=== PATIENT | female | born 1945 | race Caucasian/White ===

== ENCOUNTER 2017-08-25 12:58 | Observation (INO) | payer OTHER ==
--- NOTE | 2017-08-25 13:24 | EDPHY ---
H & P Time Seen by Provider: 08/25/17 13:12 HPI/ROS: CHIEF COMPLAINT: GI bleed, black stool HISTORY OF PRESENT ILLNESS: [place] and has not had GI bleed ever before. She has been taking 6-8 ibuprofen a day for the past week for a right iliotibial band pain in her right hip. She woke up at 8:00 a.m. Today and had black runny watery stool and had a total of 3 black tarry bowel movements this morning. She was seen at urgent care just prior to coming here and had a heart rate of 118 the and melena on occult blood testing. Here her black stool is moderate. Associated with a little abdominal discomfort but no pain. No vomiting or right red blood per rectum. Not better worse with anything. REVIEW OF SYSTEMS: Eye: no change in vision ENT: no sore throat Cardiac: no chest pain or syncope, not dizzy or lightheaded Pulmonary: no cough or SOB Abdomen: HPI Musculoskeletal: HPI Skin: no rash Neuro: no headache Constitutional: no fever : no urinary symptoms A comprehensive 10 point review of systems is otherwise negative aside from elements mentioned in the history of present illness. PAST MEDICAL HISTORY: Includes diabetes, hypertension, hypercholesterolemia, irritable bowel Social history: Visiting from [facility] General Appearance: Alert and conversant, cooperative. Eyes: No scleral icterus. ENT, Mouth: Normal mucous membranes. Respiratory: Normal respiratory effort, breath sounds equal, lungs are clear to auscultation. Cardiovascular: Regular rate and rhythm. Gastrointestinal: Abdomen is soft and non tender. Neurological: Alert, ambulatory into the room. Skin: Warm and dry, no rashes. Musculoskeletal: No peripheral edema. Psychiatric: Not agitated. Emergency Department course/MDM: Patient's initial heart rate 109 with blood pressure 135/106. Likely acute upper GI bleed, probably from nonsteroidal use. Plan for IV ppi, IV fluid resuscitation, admission to hospitalist with Gastroenterology consultation for endoscopy. 1348: istat hematocrit 41. 1352: Alicia for Caleb. Smoking Status: Never smoked Constitutional: Initial Vital Signs Temperature (C) 36.6 C 08/25/17 13:04 Heart Rate 109 H 08/25/17 13:04 Respiratory Rate 18 08/25/17 13:04 Blood Pressure 135/106 H 08/25/17 13:04 O2 Sat (%) 95 08/25/17 13:04 O2 Delivery Mode Room Air Allergies/Adverse Reactions: aspirin Allergy (Verified 08/25/17 13:10) erythromycin base Allergy (Verified 08/25/17 13:10) Penicillins Allergy (Verified 08/25/17 13:10) Sulfa (Sulfonamide Antibiotics) Allergy (Verified 08/25/17 13:10) Home Medications: Medication Instructions Recorded Fosamax 35 MG 08/25/17 Lisinopril 08/25/17 Metformin HCl 08/25/17 traZODone 08/25/17 Medical Decision Making - Diagnostics EKG Interpretation: 12-lead EKG interpreted by me; official reading is in trace master. My interpretation is sinus rhythm with left axis and PVC. Differential Diagnosis: Differential includes but not limited to lower GI bleed, gastroenteritis, infectious diarrhea, colitis. Consult/Admit Bed Type: [facility] 132 - Data Points Laboratory Results: Laboratory Results 08/25/17 13:20 08/25/17 13:20 08/25/17 08/25/17 08/25/17 13:36 13:29 13:20 WBC RBC Hgb POC Hgb 13.9 gm/dL gm/dL (12.6-16.3) Hct POC Hct 41 % % (38-47) MCV MCH MCHC RDW Plt Count MPV Neut % (Auto) Lymph % (Auto) [place] % (Auto) Eos % (Auto) Baso % (Auto) Nucleat RBC Rel Count Absolute Neuts (auto) Absolute Lymphs (auto) Absolute Monos (auto) Absolute Eos (auto) Absolute Basos (auto) Absolute Nucleated RBC Immature Gran % Immature Gran # PT INR APTT POC Sodium 144 mEq/L mEq/L (135-145) Sodium 144 mEq/L mEq/L (135-145) POC Potassium 3.8 mEq/L mEq/L (3.3-5.0) Potassium 4.3 mEq/L mEq/L (3.5-5.2) POC Chloride 110 mEq/L mEq/L (97-110) Chloride 110 mEq/L mEq/L (97-110) Carbon Dioxide 21 mEq/l L mEq/l (22-31) Anion Gap 13 mEq/L mEq/L (8-16) POC BUN 18 mg/dL mg/dL (7-23) BUN 18 mg/dL mg/dL (7-23) Creatinine 0.6 mg/dL mg/dL (0.6-1.0) POC Creatinine 0.5 mg/dL L mg/dL (0.6-1.0) Estimated GFR > 60 Glucose 120 mg/dL H mg/dL (70-100) POC Glucose 132 mg/dL H mg/dL (70-100) Calcium 10.1 mg/dL mg/dL (8.5-10.4) Patient ABO/Rh Pending Antibody Screen Pending 08/25/17 08/25/17 13:20 13:20 WBC 9.50 10^3/uL 10^3/uL (3.80-9.50) RBC 4.42 10^6/uL 10^6/uL (4.18-5.33) Hgb 12.9 g/dL g/dL (12.6-16.3) POC Hgb Hct 39.4 % % (38.0-47.0) POC Hct MCV 89.1 fL fL (81.5-99.8) MCH 29.2 pg pg (27.9-34.1) MCHC 32.7 g/dL g/dL (32.4-36.7) RDW 13.7 % % (11.5-15.2) Plt Count 298 10^3/uL 10^3/uL (150-400) MPV 10.9 fL fL (8.7-11.7) Neut % (Auto) 61.8 % % (39.3-74.2) Lymph % (Auto) 25.1 % % (15.0-45.0) [place] % (Auto) 10.7 % % (4.5-13.0) Eos % (Auto) 1.3 % % (0.6-7.6) Baso % (Auto) 0.7 % % (0.3-1.7) Nucleat RBC Rel Count 0.0 % % (0.0-0.2) Absolute Neuts (auto) 5.87 10^3/uL 10^3/uL (1.70-6.50) Absolute Lymphs (auto) 2.38 10^3/uL 10^3/uL (1.00-3.00) Absolute Monos (auto) 1.02 10^3/uL H 10^3/uL (0.30-0.80) Absolute Eos (auto) 0.12 10^3/uL 10^3/uL (0.03-0.40) Absolute Basos (auto) 0.07 10^3/uL 10^3/uL (0.02-0.10) Absolute Nucleated RBC 0.00 10^3/uL 10^3/uL (0-0.01) Immature Gran % 0.4 % % (0.0-1.1) Immature Gran # 0.04 10^3/uL 10^3/uL (0.00-0.10) PT 12.5 SEC SEC (12.0-15.0) INR 0.91 (0.83-1.16) APTT 29.0 SEC SEC (23.0-38.0) POC Sodium Sodium POC Potassium Potassium POC Chloride Chloride Carbon Dioxide Anion Gap POC BUN BUN Creatinine POC Creatinine Estimated GFR Glucose POC Glucose Calcium Patient ABO/Rh Antibody Screen Medications Given: Discontinued Medications Sodium Chloride (Ns) 1,000 mls @ 0 mls/hr IV EDNOW ONE; Wide Open PRN Reason: Protocol Stop: 08/25/17 13:26 Last Admin: 08/25/17 13:32 Dose: 1,000 mls Pantoprazole Sodium (Protonix) 80 mg IVP EDNOW ONE Stop: 08/25/17 13:27 Last Admin: 08/25/17 13:32 Dose: 80 mg Point of Care Test Results: 08/25/17 13:36 POC Sodium 144 POC Potassium 3.8 POC Chloride 110 POC BUN 18 POC Creatinine 0.5 L POC Glucose 132 H Departure - Departure Disposition: [facility] Inpatient Acute Clinical Impression: Upper GI bleed Condition: Good Referrals: NONE *PRIMARY CARE P,. [Primary Care Provider] - As per Instructions
[2017-08-25] MEDS ORDERED: NS 1,000 ML IV ONE (13:25)
[2017-08-25] MEDS ORDERED: PANTOPRAZOLE SODIUM 40 MG VIAL IVP ONE (13:26)
[2017-08-25 13:40] LABS: PLATELET COUNT 298 10^3/uL (150-400)
--- NOTE | 2017-08-25 13:47 | CPEKG ---
Heart Rate: 95 RR Interval: 632 P-R Interval: 180 QRSD Interval: 92 QT Interval: 364 QTC Interval: 458 P [place]: 23 QRS [place]: -20 T Wave [place]: 19 EKG Severity - BORDERLINE ECG - EKG Impression: SINUS RHYTHM EKG Impression: BORDERLINE LEFT AXIS DEVIATION EKG Impression: BORDERLINE T WAVE ABNORMALITIES Electronically Signed By: Karl Sheth 25-Aug-2017 14:06:04
[2017-08-25 13:49] LABS: INR 0.91 (0.83-1.16); PROTIME(PATIENT) 12.5 SEC (12.0-15.0)
[2017-08-25] MEDS ORDERED: ONDANSETRON 4 MG/2 ML VIAL IVP PRN ×2 (14:38→17:25)
[2017-08-25] MEDS ORDERED: ONDANSETRON DISINTEGRATING 4 MG TAB PO PRN (14:38)
[2017-08-25] MEDS ORDERED: LORazepam 2 MG/ML INJ IVP PRN (15:20)
[2017-08-25] MEDS ORDERED: diphenhydrAMINE 25 MG CAP PO PRN (15:21)
[2017-08-25] MEDS ORDERED: traZODone 50 MG TAB PO PRN (15:21)
[2017-08-25] MEDS ORDERED: NS 1,000 ML IV SCH (15:30)
--- NOTE | 2017-08-25 16:13 | PDANEPAE ---
ANE History of Present Illness 72 yo female with GI bleed in setting of recent daily NSAID use. ANE Past Medical History - Cardiovascular History Hx Hypertension: Yes Hx Arrhythmias: No Hx Coronary Artery / Peripheral Vascular Disease: No Hx Palpitations: No Cardiovascular History Comment: hypercholesterolemia - Pulmonary History Hx COPD: No Hx Asthma/Reactive Airway Disease: No Hx Oxygen in Use at Home: No - Endocrine History Hx Diabetes: Yes Hypothyroid: No Obesity: no - Neurological & Psychiatric Hx Hx Neurological and Psychiatric Disorders: Yes Neurological / Psychiatric History Comment: anxiety - takes Valium and trazadone - GI History Hx Gastrointestinal Disorders: Yes Gastrointestinal History Comment: IBS - Other Health History Other Health History: osteoporosis ANE Review of Systems Review of Systems: - Systems Respiratory: Reports: cough (dry, 2 nights ago, thinks it was due to low humidity in [place] (visiting from [place])) Gastrointestinal: Reports: black stools Muscolosketal: Reports: joint pain (hip pain - taking ibuprofen recently to help ) ANE Patient History - Allergies Allergies/Adverse Reactions: Sulfa (Sulfonamide Antibiotics) Allergy (Severe, Verified 08/25/17 14:21) Swelling/neck,face,throat aspirin Allergy (Intermediate, Verified 08/25/17 14:21) Other-Enter Comments erythromycin base Allergy (Intermediate, Verified 08/25/17 14:21) Vomiting Penicillins Allergy (Intermediate, Verified 08/25/17 14:21) Other-Enter Comments - Home Medications Home Medications: Alendronate Sodium [Fosamax 70 MG (*)] 70 mg PO WE@0700 08/25/17 [Last Taken ] Atorvastatin Calcium [Lipitor 40 mg (*)] 40 mg PO HS 08/25/17 [Last Taken ] Calcium Carbonate [Oyster Shell Calcium 500 mg (*)] 1,000 mg PO DAILY 08/25/17 [ Last Taken 08/24/17] Cholecalciferol Vit D3 [Vitamin D3 2000 units tab (OTC)] 2,000 units PO DAILY [Last Taken 08/24/17] Diazepam [Valium 5 MG (*)] 2.5 mg PO DAILY PRN 08/25/17 [Last Taken 08/22/17] Ibuprofen [Motrin (*)] 400 mg PO Q6 PRN 08/25/17 [Last Taken 08/24/17 22:00] Lisinopril [Zestril 5 mg (*)] 5 mg PO DAILY 08/25/17 [Last Taken 08/25/17] Loperamide HCl [Imodium 2 mg (*)] 2 mg PO PRN PRN 08/25/17 [Last Taken Unknown] diphenhydrAMINE [Benadryl 25 MG (*)] 25 mg PO DAILY PRN 08/25/17 [Last Taken Unknown] metFORMIN HCL [Metformin HCl] 500 mg PO HS 08/25/17 [Last Taken 08/24/17] traZODone [traZODONE 50MG (*)] 50 mg PO HS PRN 08/25/17 [Last Taken Unknown] - NPO status NPO Status: no food or drink >8 hours - Anes Hx Anes Hx: no prior problems - Smoking Hx Smoking Status: Never smoked - Family Anes Hx Family Anes Hx: neg - N/A ANE Labs/Vital Signs - Labs Result Diagrams: 08/25/17 13:20 08/25/17 13:20 - Vital Signs Blood Pressure: 142/86 Heart Rate: 90 Respiratory Rate: 16 O2 Sat (%): 97 Height: 167.64 cm Weight: 80.5 kg ANE Physical Exam - Airway Neck exam: FROM Mallampati Score: Class 2 Mouth exam: normal dental/mouth exam - Cardiovascular Cardiovascular: regular rate and rhythym - ASA Status ASA Status: II, E ANE Anesthesia Plan Anesthesia Plan: GA with mask Total IV Anesthesia: Yes
--- NOTE | 2017-08-25 16:14 | GHP ---
[f rep st] HISTORY AND PHYSICAL DATE OF ADMISSION: 08/25/2017 PRIMARY CARE PHYSICIAN: Janna Lobato at [facility] in [place]. CHIEF COMPLAINT: Dark tarry stools, with GI bleeding. HISTORY OF PRESENT ILLNESS: The patient is a 72-year-old female with a history of hypertension, lisette nsulin-dependent diabetes mellitus, who has been taking multiple doses of ibuprofen for the past toni ral months. Since a few months ago, she has been having pain in her IT band that has been treated wi th PT and NSAID therapy. This morning, she awoke at 8 and proceeded to have watery black stool, foll owed by dark tarry stools with a total of 3 bowel movements. She went to [facility] and t tracy was transferred to [facility] ED, and now is being admitted. She denies any past history of bleed ing. She did note some mild queasiness this morning, but has not been having nausea, vomiting, abdom inal pain. She does have known gallstones in her gallbladder, but has not been having any abdominal cramping or postprandial pain. REVIEW OF SYSTEMS: As per HPI. A complete 10-point review of systems was obtained and is negative e xcept for what is dictated. FAMILY HISTORY: Mother who of pancreatic cancer at age 82. Father who of cirrhosis at 42. She has adult children who are in good health. PAST SURGICAL HISTORY: Includes cataract surgery. She had a colonoscopy in April that showed 3 b enign polyps, and her next colonoscopy is scheduled for 3 years from now. PAST MEDICAL HISTORY: 1. Noninsulin dependent diabetes mellitus. 2. Hypertension. 3. Dyslipidemia. 4. Irritable bowel syndrome. 5. Gallstones. 6. Right leg IT band discomfort. 7. History of broken ankle. SOCIAL HISTORY: Patient is . Her Shane is at the bedside. She is a never smoker, and she reports no recent alcohol intake. OUTPATIENT MEDICATIONS: Include Fosamax, lisinopril, metformin, trazodone, atorvastatin. ALLERGIES: Include sulfonamides, aspirin, erythromycin base, and penicillins. PHYSICAL EXAMINATION: VITAL SIGNS: BP of 127/80, heart rate of 86, respirations 16, O2 saturation 9 5% on room air, temp of 97.9 degrees Fahrenheit. GENERAL: She is a very pleasant female, in no appa rent distress. HEENT: Head is normocephalic, atraumatic. Eyes are without scleral icterus. ENT wi th moist mucous membranes. HEART: Regular rate and rhythm with no rubs, gallops, or murmurs. LUNGS : Clear to auscultation bilaterally. ABDOMEN: Soft with normoactive bowel sounds. SKIN: Dry and warm, without any rashes. : No Terrell present. PSYCH: Normal mood and affect for given situation. NEURO: No focal deficits detected. I discussed patient's care with . A 12-lead ECG, personally interpreted, demonstrates sinus rhythm with a borderline LAFB, one PVC. LABORATORY DATA: BMP with sodium 144, potassium 3.8, chloride 110, BUN 18, creatinine 0.6, glucose 1 20. CBC with WBC 9.5, hemoglobin 12.9, hematocrit 39.4, platelet count 298. IMPRESSION AND PLAN: The patient is a 72-year-old female, admitted with a gastrointestinal bleed. 1. Gastrointestinal bleed. She is being kept n.p.o. for possible endoscopy today. If no endoscopy is done today, she may just advance to diet as tolerated. 2. Hypertension. Blood pressure appears adequately controlled. Her lisinopril will be continued. 3. Type 2 diabetes mellitus. Her metformin will be held in anticipation of invasive procedure. 4. Anxiety. She has been given p.r.n. Ativan. 5. Dyslipidemia. Her atorvastatin will be continued on this admission. 6. Diet, n.p.o. until timing of EGD is determined. 7. Full code. Her is medical power of county attorney. 8. Disposition. The patient is being admitted obs. Should she require further procedures, or if an y of her vital signs become unstable, she will have to be transitioned to inpatient status. /[id number]/MODL
[2017-08-25] MEDS ORDERED: LIDOCAINE 2% 5 ML SDV ONE (16:19)
[2017-08-25] MEDS ORDERED: PROPOFOL 200 MG/20 ML VIAL ONE ×2 (16:19)
--- NOTE | 2017-08-25 17:21 | GIREPORT ---
[facility] - Endoscopy Department Patient Name: Yasmine Villagomez Procedure Date: 08/25/2017 4:34 PM Patient Type: Inpatient Attending MD/ ER Physician: Eugene Hutchison MD Procedure: Upper GI endoscopy Indications: Melena Providers: Eugene Hutchison MD Medicines: Total IV Anesthesia (TIVA) Complications: No immediate complications. Description of Procedure: After obtaining informed consent, the endoscope was passed under direct vision. Throughout the procedure, the patient's blood pressure, pulse, and oxygen saturations were monitored continuously. The Endoscope was intro duced through the mouth, and advanced to the second part of duodenum. The [facility] er GI endoscopy was accomplished without difficulty. The patient tolerated th e procedure well. Findings: The examined esophagus was normal. Five non-bleeding linear gastric ulcers with pigmented material were fo und in the gastric fundus. The largest lesion was 15 mm in largest dimensio n. The gastric antrum was normal. Biopsies were taken with a cold forceps for histology. The examined duodenum was normal. Estimated Blood Loss: Estimated blood loss: none. Post Op Diagnosis: - Normal esophagus. - Non-bleeding gastric ulcers with pigmented material. - Normal antrum. Biopsied. - Normal examined duodenum. Recommendation: - [facility]. - Clear liquid diet today. - Use Protonix (pantoprazole) 40 mg PO BID today. - Check liver enzymes (AST, ALT, alkaline phosphatase, bilirubin), hemoglobin and hematocrit in the morning. - Await pathology results. Attending Participation: I personally performed the entire procedure. Eugene Hutchison MD Eugene Hutchison MD 08/25/2017 5:21:06 PM This report has been signed electronicallyJojoseph Hutchison MD Number of Addenda: 0 Note Initiated On: 08/25/2017 4:34 PM [email or web address]
[2017-08-25] MEDS ORDERED: LR 500 ML IV PRN (17:25)
[2017-08-25] MEDS ORDERED: ALBUTEROL 3 ML DEYVIAL IH PRN (17:25)
--- NOTE | 2017-08-25 17:26 | POSTANESTH ---
Post Anesthetic Evaluation Cardiovascular Status: Normal, Stable Respiratory Status: Normal, Stable Level of Consciousness/Mental Status: Can Participate in Eval, Mildly Sleepy, Arousable Pain Control: Adequate, Prn Tx Ordered Nausea/Vomiting Control: Adequate, Prn Tx Ordered Complications Possibly Related to Anesthesia: None Noted
[2017-08-25] MEDS ORDERED: D5W NS 1,000 ML IV ONE (19:00)
[2017-08-25] MEDS: LORazepam 0.5 MG TAB PO PRN (20:38)
[2017-08-25] MEDS: PANTOPRAZOLE SODIUM 40 MG TAB PO SCH (20:38)
--- NOTE | 2017-08-25 20:46 | GCON ---
[f rep st] CONSULTATION GI CONSULTATION DATE OF CONSULTATION: 08/25/2017 REQUESTING PHYSICIAN: Karl Sheth MD CHIEF COMPLAINT: Melena. HISTORY OF PRESENT ILLNESS: The patient is a 72-year-old female who was admitted through the emergen cy room today after passage of a black tarry stool earlier this a.m., at approximately 8 a.m. She de nied any preceding nausea or vomiting, dyspepsia, or heartburn or change in bowel habits. She had a total of 3 black tarry stools before going to urgent care, was noted to have sinus tachycardia at 118 , and Hemoccult positive stool. She was transferred to [facility] ER and admitted for observation. She has had no prior history of peptic ulcer disease. She does have routine colonoscopies for personal hist ory of adenomatous colon polyps. Her last colonoscopy was in April of last year, at which time 3 small polyps were removed that were adenomatous. She is on chronic nonsteroidals for right lower ext remity pain. MEDICATIONS: Prior to admission include Fosamax 35 mg daily, lisinopril 20 mg daily, metformin 1 tab let daily, trazodone daily, and ibuprofen 800 mg daily. ALLERGIES: Aspirin, erythromycin, penicillin and sulfa. PAST MEDICAL HISTORY: Significant for right lower extremity pain secondary to nerve pain, diabetes m ellitus, essential hypertension, hyperlipidemia, and history of IBS. PAST SURGICAL HISTORY: Significant for colonoscopy with polypectomies in April 2017. SOCIAL HISTORY: She does drink occasional alcohol. She drank moderate amounts up until 1 month ago when she was told she had abnormal liver enzymes and multiple gallstones in her gallbladder. FAMILY HISTORY: Positive for colon cancer in maternal grandfather in his 90s. REVIEW OF SYSTEMS: Other than the melena, were negative for 10 systems. PHYSICAL EXAMINATION: VITAL SIGNS: On my examination today, temperature was 36.5 Celsius, pulse was 104, regular, blood pressure 142/86, respiratory rate was 16, O2 saturation 97% on room air. GENERA L: A well-developed, well-nourished female in no apparent distress. INTEGUMENT: Clear. HEENT: He ad atraumatic, normocephalic. Pupils equal, round, reactive to light. EOMs are intact. Sclerae are nonicteric. Nares patent. Mucous membranes moist. Dentition good. NECK: Supple. Trachea midlin e. LYMPHATICS: No cervical or axillary adenopathy palpated. PULMONARY: Lungs are clear to percuss ion and auscultation. CARDIOVASCULAR: Rapid rate. Normal S1, S2 without murmur. Peripheral pulses slightly decreased bilaterally. No pedal edema. GASTROINTESTINAL: Abdomen supple. Positive bowel sounds. No liver or spleen palpable. No masses or tenderness noted. No fluid wave noted. EXTREMI TIES: Without deformity. NEUROLOGIC: Patient was alert, oriented x3. There are no focal neurologi c deficits. LABORATORY DATA: White count 9.5, hemoglobin 12.9, hematocrit 39.4, platelets 298,000. Pro time 12. 5, INR 0.91, PTT 29.0. Electrolytes normal. BUN 18, creatinine 0.6, glucose 120, calcium 10.1. EKG showed sinus rhythm, borderline left axis deviation, and nonspecific T-wave abnormalities. IMPRESSION: 1. A 72-year-old female, on chronic nonsteroidal antiinflammatory drugs, now with melena, rule out n onsteroidal antiinflammatory drug-induced peptic ulcer disease, rule out upper gastrointestinal malig john (doubt), doubt colonic etiology, especially with recent colonoscopy 3 months ago. 2. Type 2 diabetes mellitus. 3. Hyperlipidemia. 4. Cholelithiasis-asymptomatic. 5. Prior history of abnormal liver enzymes. RECOMMENDATIONS: 1. N.p.o. 2. IV PPI therapy. 3. We will proceed with urgent esophagogastroduodenoscopy to evaluate for etiology of the patient's melena. /[id number]/MODL
[2017-08-26] MEDS: LORazepam 0.5 MG TAB PO PRN (02:54)
[2017-08-26 04:13] LABS: PLATELET COUNT 219 10^3/uL (150-400)
[2017-08-26] MEDS: ACETAMINOPHEN 325 MG TAB PO PRN ×2 (05:37→10:00)
[2017-08-26 07:36] VITALS: RESP 16; O2SAT 94
[2017-08-26] MEDS ORDERED: LISINOPRIL 5 MG TAB PO SCH (09:00)
[2017-08-26] MEDS: PANTOPRAZOLE SODIUM 40 MG TAB PO SCH (10:01)
--- NOTE | 2017-08-26 10:02 | ASMTCMCOM ---
CM Note CM Note Notes: 08/26/2017 Case Management Note Met w/pt. PARNELL signed. Pt and her are visiting family here in [place]. She plans to fly back to [place] on Saturday. 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 Pt ambulates without difficulty. PT evals have not been ordered at this time. There are no identified case management d/c needs identified at this time. Pt in agreement. Case Management d/c poc: home independent with follow up as directed. Case Management available if needs change. Date Signed: 08/26/2017 10:01 AM Electronically Signed By:Shavonne Benitez RN
[2017-08-26 11:16] VITALS: BP 139/97; PULSE 79; TEMP 98.4
--- NOTE | 2017-08-26 14:22 | SOAPPROG ---
SOAP Progress Note Assessment/Plan: Assessment:Plan: 1) UGI bleed from NSAID induced ulceration - no further bleeding, stool not melanic, HB stable. PPI BId for 2 weeks, then daily for 8 weeks total 2) anemia - from #1 - no need for PRBC, can start iron in few days 3) LFT's - penitentiary issue, reportedly with full workup - to see surgeon in few days for gallstones 4) diarrhea - stool pcr pending prob home today f/u with PCP in [place] 08/26/17 14:19 Subjective: cc- UGI bleed from NSAID induced ulceration pt feeling well, has loose green stools, no melena tolerating PO, ready to go home Objective: Vital Signs Temp Pulse Resp BP Pulse Ox 36.9 C 79 16 139/97 H 94 08/26/17 11:15 08/26/17 11:15 08/26/17 11:15 08/26/17 11:15 08/26/17 11:15 Laboratory Results 08/26/17 12:16 08/26/17 03:20 08/25/17 08/26/17 08/27/17 05:59 05:59 05:59 Intake Total 1590 120 Output Total 500 Balance 1090 120 PT 12.5 SEC (12.0-15.0) 08/25/17 13:20 INR 0.91 (0.83-1.16) 08/25/17 13:20 A+Ox3 CTA S1S2, RRR +BS, soft nt Laboratory Tests 08/25/17 08/25/17 08/26/17 13:20 13:36 03:20 Hgb 10.2 L POC BUN 18 BUN 18 Creatinine 0.6 POC Creatinine 0.5 L AST ALT Alkaline Phosphatase 08/26/17 08/26/17 03:20 12:16 Hgb 10.7 L POC BUN BUN 11 Creatinine 0.5 L POC Creatinine AST 59 H ALT 76 H Alkaline Phosphatase 52 ICD10 Worksheet Patient Problems: Problems Problem Status Onset Upper GI bleed Acute
--- NOTE | 2017-08-26 16:04 | ASDISCHSUM ---
Discharge Information Plan Status:Home with No Needs Medically Cleared to Leave:08/26/2017 Discharge Date:08/26/2017 03:58 PM CM D/C Disposition:Home, Routine, Self-Care ADT D/C Disposition:Home, Routine, Self-Care Projected Discharge Date:08/26/2017 03:58 PM Transportation at D/C:Family Discharge Delay Reason: Follow-Up Date:08/26/2017 03:58 PM Discharge Slot: Final Diagnosis: Placement Information Patient Contact Information Contact Name:SRI Relationship: Address:[address] Work Phone: [facility] Phone: [facility] Code:EMILY [address] Email: Financial Information Financial Class:Medicare Primary Plan Desc:MEDICARE OUTPATIENT Primary Plan Number:[id number] Secondary Plan Desc:[employer] Secondary Plan Number:[id number] Assessment Information LACE LACE Length of stay for Answers: 1 day current admission Acuity / Level of Answers: No Care: Did the patient have an inpatient admission? Comorbidities - select Answers: Diabetes (uncontrolled or all that apply controlled) Other Notes: HTN, hypercholesterolem ia, irritable bowel # of Emergency department Answers: 1-2 visits in the last 6 months Score: 4 Date Signed: 08/26/2017 04:03 PM Electronically Signed By:Shavonne Benitez RN [facility] CM Progress Note CM Note CM Note Notes: 08/26/2017 Case Management Note Met w/pt. PARNELL signed. Pt and her are visiting family here in [place]. She plans to fly back to [place] on Saturday. 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 Pt ambulates without difficulty. PT evals have not been ordered at this time. There are no identified case management d/c needs identified at this time. Pt in agreement. Case Management d/c poc: home independent with follow up as directed. Case Management available if needs change. Date Signed: 08/26/2017 10:01 AM Electronically Signed By:Shavonne Benitez RN Intervention Information Intervention Type:*PARNELL-Signed Date of Service:08/26/2017 09:58 AM Patient Type:Observation Staff Member:KATHARINA Benitez, Shavonne Hours: Discipline: Severity: Comment:
--- NOTE | 2017-08-26 21:45 | GDS ---
[f rep st] DISCHARGE SUMMARY DIAGNOSES: 1. Upper gastrointestinal bleed. 2. Nonbleeding gastric ulcer status post biopsy. 3. History of irritable bowel syndrome. 4. Hypertension. 5. Hyperlipidemia. 6. Diabetes mellitus type 2. 7. Anxiety. PROCEDURE: EGD by Dr. Hutchison showing nonbleeding gastric ulcers with pigmented material, showed normal antrum, which was biopsied. HOSPITAL COURSE: A 72-year-old female, admitted with a few days of melena. She underwent upper endo scopy. Recommend Protonix 40 b.i.d. for at least 2 months. She will follow up in [place], [place], with her primary care physician for ongoing management. Biopsies will need to be followed up on. She has chronic diarrhea. She has more of an exacerbation than normal. Stool studies have been sent and are pending at the time of discharge. I will call her if this is positive. She has been hemodynamically stable. Hemoglobin was 12.9 on presentation, stable at 10.2 to 10.7 on subsequent checks. She is stable for discharge. STUDIES PENDING AT THE TIME OF DISCHARGE: 1. Pathology from antral biopsy. 2. Stool study. CONSULTATIONS: Gastroenterology. Copy requested to: Janna Schofield MD [place], [place] /[id number]/MODL
== END 2017-08-26 15:58 | disposition home or self-care (01) ==
LOC: F2W 14:40
PROVIDERS: ADMIT Internal Medicine; ATTEND Internal Medicine
PROC: 0DB68ZX Excision of Stomach, Via Natural or Artificial Opening Endoscopic, Diagnostic (ICD-10-PCS; principal; 2017-08-25 16:28)
DX: K92.1 Melena (principal); K25.9 Gastric ulcer, unspecified as acute or chronic, without hemorrhage or perforation; E11.9 Type 2 diabetes mellitus without complications; I10 Essential (primary) hypertension; E78.00 Pure hypercholesterolemia, unspecified; Z86.010 Personal history of colon polyps; K80.20 Calculus of gallbladder without cholecystitis without obstruction; R19.7 Diarrhea, unspecified; D50.0 Iron deficiency anemia secondary to blood loss (chronic)
CPT/HCPCS: 43239; 88305; 88342; 93005; 97165; G0378; G8987; G8988; G8989; J2060; J2704; 82947-QW; 96374; J0171